=== PATIENT | female | born 1955 | race Two or more races ===

== ENCOUNTER 2019-11-05 06:06 | Inpatient (IN) | payer OTHER ==
[~2019-11-05] VITALS: Ht 162.6 cm; Wt 68.9 kg
[2019-11-05] MEDS ORDERED: LOSARTAN POTASS50 MG PO (10:17)
[2019-11-05] MEDS ORDERED: GLIPIZIDE XL10 MG PO (10:17)
[2019-11-05] MEDS ORDERED: SYNTHROID75 MCG PO (10:18)
[2019-11-05] MEDS ORDERED: ASPIR 8181 MG PO (10:19)
[2019-11-05] MEDS ORDERED: HYDROCHLOROTHIA25 MG PO (10:19)
[2019-11-05] MEDS ORDERED: SIMVAST PO (10:19)
[2019-11-05] MEDS ORDERED: AMLODIPINE PO (10:20)
[2019-11-05] MEDS ORDERED: AMLODIPINE BESYL5 MG PO (16:28)
[2019-11-05] MEDS ORDERED: SIMVASTATIN20 MG PO (16:28)
== END 2019-11-07 11:42 | disposition home or self-care (01) | DRG 741 ==
LOC: O/R 06:06 → OB/GYN 06:06
PROVIDERS: ADMIT Obstetrics & Gynecology Gynecologic Oncology; ATTEND Obstetrics & Gynecology Gynecologic Oncology
PROC: 0UT20ZZ Resection of Bilateral Ovaries, Open Approach (ICD-10-PCS; 2019-11-05)
PROC: 0UT70ZZ Resection of Bilateral Fallopian Tubes, Open Approach (ICD-10-PCS; 2019-11-05)
PROC: 0TBB0ZZ Excision of Bladder, Open Approach (ICD-10-PCS; 2019-11-05)
PROC: 0UT90ZZ Resection of Uterus, Open Approach (ICD-10-PCS; principal; 2019-11-05 13:00)
DX: C54.1 Malignant neoplasm of endometrium (principal); N80.0 Endometriosis of uterus; E03.9 Hypothyroidism, unspecified; I10 Essential (primary) hypertension; E11.9 Type 2 diabetes mellitus without complications; D30.3 Benign neoplasm of bladder